=== PATIENT | female | born 1960 | race Caucasian/White ===

== ENCOUNTER 2016-01-06 08:36 | Outpatient (RCR) | payer BC ==
[2016-01-06 08:44] LABS: MEAN CORPUSCULAR HGB CONC 33.8 g/dL (31.0-37.0); PLATELET COUNT 130 10^3uL (150-450)
[2016-01-06 09:50] LABS: MEAN CORPUSCULAR HEMOGLOBIN 38.1 PG (26.0-34.0); MEAN CORPUSCULAR VOLUME 113 FL (80-100)
[2016-01-06 09:51] LABS: ANISOCYTOSIS SLIGHT; BAND NEUTROPHILS % 4 % (0-6); EOSINOPHILS % 1 % (0-4); LYMPHOCYTES # 1.4 #; MONOCYTES # 0.5 #; MONOCYTES % 7 % (3-11); RBC MORPH SEE REFERENCE (NORMAL); SEGMENTED NEUTROPHILS % 70 % (51-67); TOTAL CELLS COUNTED 100
[2016-01-13 08:26] LABS: BASOPHILS % (AUTO) 1 % (0-2); EOSINOPHILS # (AUTO) 0.1 10^3uL; EOSINOPHILS % (AUTO) 1 % (0-4); LYMPHOCYTES # (AUTO) 1.9 X10^3; MEAN CORPUSCULAR HGB CONC 34.2 g/dL (31.0-37.0); MEAN PLATELET VOLUME 10.2 FL (6.0-9.5); MONOCYTES # (AUTO) 0.8 X10^3; MONOCYTES % (AUTO) 14 % (3-11); NEUTROPHILS # (AUTO) 2.6 X10^3; NEUTROPHILS % (AUTO) 47 % (51-67); PLATELET COUNT 178 10^3uL (150-450); WHITE BLOOD COUNT 5.51 10^3uL (4.0-11.0)
[2016-01-13 08:30] LABS: MEAN CORPUSCULAR HEMOGLOBIN 38.2 PG (26.0-34.0); MEAN CORPUSCULAR VOLUME 112 FL (80-100)
[2016-01-20 10:34] LABS: BASOPHILS % (AUTO) 0 % (0-2); EOSINOPHILS # (AUTO) 0.1 10^3uL; EOSINOPHILS % (AUTO) 2 % (0-4); LYMPHOCYTES # (AUTO) 0.8 X10^3; MEAN CORPUSCULAR HGB CONC 33.1 g/dL (31.0-37.0); MEAN PLATELET VOLUME 9.3 FL (6.0-9.5); MONOCYTES # (AUTO) 0.4 X10^3; MONOCYTES % (AUTO) 9 % (3-11); NEUTROPHILS # (AUTO) 2.8 X10^3; NEUTROPHILS % (AUTO) 68 % (51-67); PLATELET COUNT 223 10^3uL (150-450); WHITE BLOOD COUNT 4.09 10^3uL (4.0-11.0)
[2016-01-20 11:18] LABS: MEAN CORPUSCULAR HEMOGLOBIN 37.2 PG (26.0-34.0); MEAN CORPUSCULAR VOLUME 112 FL (80-100)
[2016-01-27 09:51] LABS: MEAN PLATELET VOLUME 9.6 FL (6.0-9.5); PLATELET COUNT 98 10^3uL (150-450); WHITE BLOOD COUNT 2.48 10^3uL (4.0-11.0)
[2016-01-27 09:56] LABS: MEAN CORPUSCULAR HEMOGLOBIN 38.8 PG (26.0-34.0); MEAN CORPUSCULAR HGB CONC 36.6 g/dL (31.0-37.0); MEAN CORPUSCULAR VOLUME 106 FL (80-100)
[2016-01-27 09:58] LABS: BAND NEUTROPHILS % 0 % (0-6); EOSINOPHILS % 1 % (0-4); LYMPHOCYTES # 0.3 #; MONOCYTES % 1 % (3-11); RBC MORPH SEE REFERENCE (NORMAL); SEGMENTED NEUTROPHILS % 85 % (51-67); TOTAL CELLS COUNTED 100
[2016-02-03 09:57] LABS: BASOPHILS % (AUTO) 1 % (0-2); EOSINOPHILS # (AUTO) 0.3 10^3uL; EOSINOPHILS % (AUTO) 6 % (0-4); LYMPHOCYTES # (AUTO) 0.4 X10^3; MEAN CORPUSCULAR HGB CONC 34.4 g/dL (31.0-37.0); MEAN PLATELET VOLUME 9.7 FL (6.0-9.5); MONOCYTES # (AUTO) 0.6 X10^3; MONOCYTES % (AUTO) 9 % (3-11); NEUTROPHILS # (AUTO) 4.8 X10^3; NEUTROPHILS % (AUTO) 78 % (51-67); PLATELET COUNT 164 10^3uL (150-450)
[2016-02-03 10:04] LABS: MEAN CORPUSCULAR HEMOGLOBIN 36.9 PG (26.0-34.0); MEAN CORPUSCULAR VOLUME 107 FL (80-100)
[2016-02-10 09:57] LABS: BASOPHILS % (AUTO) 0 % (0-2); EOSINOPHILS # (AUTO) 0.4 10^3uL; EOSINOPHILS % (AUTO) 9 % (0-4); LYMPHOCYTES # (AUTO) 0.5 X10^3; MEAN CORPUSCULAR HGB CONC 34.7 g/dL (31.0-37.0); MEAN PLATELET VOLUME 9.7 FL (6.0-9.5); MONOCYTES # (AUTO) 0.5 X10^3; MONOCYTES % (AUTO) 11 % (3-11); NEUTROPHILS # (AUTO) 3.2 X10^3; NEUTROPHILS % (AUTO) 69 % (51-67); PLATELET COUNT 119 10^3uL (150-450)
[2016-02-10 09:59] LABS: MEAN CORPUSCULAR HEMOGLOBIN 36.9 PG (26.0-34.0); MEAN CORPUSCULAR VOLUME 106 FL (80-100)
[2016-02-18 10:13] LABS: BASOPHILS % (AUTO) 0 % (0-2); EOSINOPHILS # (AUTO) 0.2 10^3uL; EOSINOPHILS % (AUTO) 5 % (0-4); LYMPHOCYTES # (AUTO) 0.5 X10^3; MEAN CORPUSCULAR HGB CONC 33.9 g/dL (31.0-37.0); MEAN PLATELET VOLUME 9.1 FL (6.0-9.5); MONOCYTES # (AUTO) 0.3 X10^3; MONOCYTES % (AUTO) 9 % (3-11); NEUTROPHILS % (AUTO) 75 % (51-67); PLATELET COUNT 88 10^3uL (150-450); WHITE BLOOD COUNT 3.98 10^3uL (4.0-11.0)
[2016-02-18 10:22] LABS: MEAN CORPUSCULAR VOLUME 106 FL (80-100)
[2016-02-24 08:10] LABS: BASOPHILS % (AUTO) 0 % (0-2); EOSINOPHILS # (AUTO) 0.2 10^3uL; EOSINOPHILS % (AUTO) 4 % (0-4); LYMPHOCYTES # (AUTO) 0.5 X10^3; MEAN CORPUSCULAR HEMOGLOBIN 35.9 PG (26.0-34.0); MEAN CORPUSCULAR HGB CONC 34.4 g/dL (31.0-37.0); MEAN CORPUSCULAR VOLUME 105 FL (80-100); MONOCYTES # (AUTO) 0.4 X10^3; MONOCYTES % (AUTO) 9 % (3-11); NEUTROPHILS # (AUTO) 3.6 X10^3; NEUTROPHILS % (AUTO) 75 % (51-67); PLATELET COUNT 72 10^3uL (150-450); WHITE BLOOD COUNT 4.74 10^3uL (4.0-11.0)
[2016-03-02 10:11] LABS: BASOPHILS % (AUTO) 0 % (0-2); EOSINOPHILS # (AUTO) 0.1 10^3uL; EOSINOPHILS % (AUTO) 3 % (0-4); LYMPHOCYTES # (AUTO) 0.5 X10^3; MEAN CORPUSCULAR HGB CONC 33.5 g/dL (31.0-37.0); MEAN PLATELET VOLUME 10.2 FL (6.0-9.5); MONOCYTES # (AUTO) 0.5 X10^3; MONOCYTES % (AUTO) 13 % (3-11); NEUTROPHILS # (AUTO) 2.6 X10^3; NEUTROPHILS % (AUTO) 71 % (51-67); PLATELET COUNT 66 10^3uL (150-450); WHITE BLOOD COUNT 3.61 10^3uL (4.0-11.0)
[2016-03-02 10:58] LABS: MEAN CORPUSCULAR HEMOGLOBIN 35.3 PG (26.0-34.0); MEAN CORPUSCULAR VOLUME 105 FL (80-100)
== END 2016-04-05 | disposition home or self-care (01) ==
LOC: LAB 08:36
PROVIDERS: ATTEND Internal Medicine Hematology & Oncology
DX: C54.1 Malignant neoplasm of endometrium (principal); R92.8 Other abnormal and inconclusive findings on diagnostic imaging of breast
CPT/HCPCS: 36415; 85025

== ENCOUNTER → 2016-03-09 | Outpatient (CLI) | payer BC ==
[2016-03-09 08:27] LABS: BASOPHILS % (AUTO) 0 % (0-2); EOSINOPHILS # (AUTO) 0.1 10^3uL; EOSINOPHILS % (AUTO) 3 % (0-4); LYMPHOCYTES # (AUTO) 0.5 X10^3; MEAN CORPUSCULAR HGB CONC 34.1 g/dL (31.0-37.0); MEAN PLATELET VOLUME 10.3 FL (6.0-9.5); MONOCYTES # (AUTO) 0.4 X10^3; MONOCYTES % (AUTO) 12 % (3-11); NEUTROPHILS # (AUTO) 1.9 X10^3; NEUTROPHILS % (AUTO) 66 % (51-67); PLATELET COUNT 64 10^3uL (150-450); WHITE BLOOD COUNT 2.91 10^3uL (4.0-11.0)
[2016-03-09 08:34] LABS: MEAN CORPUSCULAR HEMOGLOBIN 34.9 PG (26.0-34.0); MEAN CORPUSCULAR VOLUME 102 FL (80-100)
[2016-03-09 08:42] LABS: ALBUMIN 4.2 g/dL (3.4-5.0); ANION GAP 16.1 MEQ/L (3-15); CALCULATED IONIZED CALCIUM 4.1 mg/dL (3.8-4.6); MAGNESIUM* 1.8 mg/dL (1.6-2.3); TOTAL PROTEIN 7.2 g/dL (6.4-8.5)
== END ==
LOC: LAB 07:59
PROVIDERS: ATTEND Internal Medicine Hematology & Oncology
DX: C54.1 Malignant neoplasm of endometrium (principal)
CPT/HCPCS: 36415; 80053; 83735; 85025

== ENCOUNTER 2016-04-13 08:34 | Outpatient (RCR) | payer BC ==
[~2016-04-13 08:34] MED LIST: ATOR20TA54 PO; CYAN250010 PO; OMG1KC PO; ONDA8TAB13 PO; OXYC1TAB87 PO; PROC10TA PO
[2016-04-13 08:45] LABS: BASOPHILS % (AUTO) 0 % (0-2); EOSINOPHILS # (AUTO) 0.1 10^3uL; EOSINOPHILS % (AUTO) 1 % (0-4); LYMPHOCYTES # (AUTO) 0.8 X10^3; MEAN CORPUSCULAR HGB CONC 34.4 g/dL (31.0-37.0); MEAN PLATELET VOLUME 9.5 FL (6.0-9.5); MONOCYTES # (AUTO) 0.5 X10^3; MONOCYTES % (AUTO) 12 % (3-11); NEUTROPHILS # (AUTO) 2.7 X10^3; NEUTROPHILS % (AUTO) 67 % (51-67); PLATELET COUNT 126 10^3uL (150-450); WHITE BLOOD COUNT 3.96 10^3uL (4.0-11.0)
[2016-04-13 08:49] LABS: MEAN CORPUSCULAR HEMOGLOBIN 35.5 PG (26.0-34.0); MEAN CORPUSCULAR VOLUME 103 FL (80-100)
[2016-05-04 08:19] LABS: BASOPHILS % (AUTO) 1 % (0-2); EOSINOPHILS # (AUTO) 0.1 10^3uL; EOSINOPHILS % (AUTO) 2 % (0-4); LYMPHOCYTES # (AUTO) 0.8 X10^3; MEAN CORPUSCULAR HGB CONC 33.7 g/dL (31.0-37.0); MEAN PLATELET VOLUME 9.4 FL (6.0-9.5); MONOCYTES # (AUTO) 0.5 X10^3; MONOCYTES % (AUTO) 13 % (3-11); NEUTROPHILS # (AUTO) 2.8 X10^3; NEUTROPHILS % (AUTO) 65 % (51-67); PLATELET COUNT 149 10^3uL (150-450)
[2016-05-04 08:20] LABS: MEAN CORPUSCULAR HEMOGLOBIN 34.4 PG (26.0-34.0); MEAN CORPUSCULAR VOLUME 102 FL (80-100)
[2016-06-01 08:14] LABS: MEAN CORPUSCULAR HGB CONC 33.5 g/dL (31.0-37.0); MEAN PLATELET VOLUME 8.5 FL (6.0-9.5); PLATELET COUNT 138 10^3uL (150-450); WHITE BLOOD COUNT 4.58 10^3uL (4.0-11.0)
[2016-06-01 08:15] LABS: MEAN CORPUSCULAR HEMOGLOBIN 34.3 PG (26.0-34.0); MEAN CORPUSCULAR VOLUME 102 FL (80-100)
[2016-06-01 08:26] LABS: BAND NEUTROPHILS % 0 % (0-6); EOSINOPHILS % 0 % (0-4); LYMPHOCYTES # 0.8 #; MONOCYTES % 1 % (3-11); RBC MORPH NORMAL (NORMAL); SEGMENTED NEUTROPHILS % 82 % (51-67); TOTAL CELLS COUNTED 100
[2016-06-01 08:46] LABS: ALBUMIN 4.1 g/dL (3.4-5.0); ANION GAP 17.1 MEQ/L (3-15); CALCULATED IONIZED CALCIUM 4.4 mg/dL (3.8-4.6); MAGNESIUM* 1.6 mg/dL (1.6-2.3); TOTAL PROTEIN 6.5 g/dL (6.4-8.5)
[2016-06-29 08:08] LABS: BASOPHILS % (AUTO) 0 % (0-2); EOSINOPHILS # (AUTO) 0.1 10^3uL; EOSINOPHILS % (AUTO) 1 % (0-4); MEAN CORPUSCULAR HGB CONC 33.1 g/dL (31.0-37.0); MONOCYTES # (AUTO) 0.4 X10^3; MONOCYTES % (AUTO) 8 % (3-11); NEUTROPHILS % (AUTO) 72 % (51-67); PLATELET COUNT 152 10^3uL (150-450)
[2016-06-29 08:09] LABS: MEAN CORPUSCULAR HEMOGLOBIN 34.1 PG (26.0-34.0); MEAN CORPUSCULAR VOLUME 103 FL (80-100)
== END 2016-07-12 | disposition home or self-care (01) ==
LOC: LAB 08:34
PROVIDERS: ATTEND Internal Medicine Hematology & Oncology
DX: C54.1 Malignant neoplasm of endometrium (principal)
CPT/HCPCS: 36415; 80053; 82607; 82746; 83615; 83735; 84100; 85007; 85025; 85027